=== PATIENT | female | born 1980 | race African-American/Black ===

== ENCOUNTER 2018-02-05 13:31 | Emergency (ER) | payer BC, SELFPAY ==
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
[2018-02-05] MEDS ORDERED: CODEINE 30MG/APAP 300MG TAB ONE (15:55)
[2018-02-05] MEDS ORDERED: DIAZEPAM 5 MG TABLET ONE (15:55)
[2018-02-05 17:21] VITALS: TEMP 98.1; O2SAT 100
[2018-02-05 17:22] VITALS: BP 120/85
== END 2018-02-05 16:16 | disposition home or self-care (01) ==
LOC: ER 13:31
DX: M54.31 Sciatica, right side (principal); Z72.0 Tobacco use; Z88.6 Allergy status to analgesic agent
CPT/HCPCS: 99283

== ENCOUNTER 2019-05-22 12:29 | Emergency (ER) | payer BC, SELFPAY ==
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
[2019-05-22 13:42] VITALS: BP 122/89; TEMP 97.7; O2SAT 100
== END 2019-05-22 13:31 | disposition home or self-care (01) ==
LOC: ER 12:29
DX: S13.9XXA Sprain of joints and ligaments of unspecified parts of neck, initial encounter (principal); S29.012A Strain of muscle and tendon of back wall of thorax, initial encounter; V43.52XA Car driver injured in collision with other type car in traffic accident, initial encounter; Y93.89 Activity, other specified; Y92.410 Unspecified street and highway as the place of occurrence of the external cause
CPT/HCPCS: 99283

== ENCOUNTER 2020-08-30 11:53 | Emergency (ER) | payer SELFPAY ==
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
[2020-08-30 14:46] VITALS: BP 152/105; TEMP 96.9; O2SAT 99
[2020-08-30] MEDS ORDERED: cloNIDine HCL 0.1 MG TAB ONE ×2 (16:29→16:32)
== END 2020-08-30 14:41 | disposition home or self-care (01) ==
LOC: ER 11:53
DX: R21 Rash and other nonspecific skin eruption (principal); F17.210 Nicotine dependence, cigarettes, uncomplicated; Z88.6 Allergy status to analgesic agent
CPT/HCPCS: 99282

== ENCOUNTER 2020-09-27 12:29 | Emergency (ER) | payer SELFPAY ==
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
[2020-09-27] MEDS ORDERED: METHYLPREDNISOLONE 125 MG INJ ONE (14:03)
[2020-09-27 14:22] VITALS: TEMP 97.5
[2020-09-27 14:23] VITALS: BP 153/113; O2SAT 100
== END 2020-09-27 14:12 | disposition home or self-care (01) ==
LOC: ER 12:29
DX: R21 Rash and other nonspecific skin eruption (principal); Z88.6 Allergy status to analgesic agent
CPT/HCPCS: 96372; 99284; J2930

== ENCOUNTER 2021-02-15 21:17 | Emergency (ER) | payer SELFPAY ==
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
[2021-02-16] MEDS ORDERED: KETOROLAC 30 MG/ML INJ ONE (00:35)
[2021-02-16 01:20] VITALS: TEMP 97.8
[2021-02-16 01:21] VITALS: BP 162/99; O2SAT 97
== END 2021-02-16 00:05 | disposition home or self-care (01) ==
LOC: ER 21:17
DX: G89.29 Other chronic pain (principal); Z88.6 Allergy status to analgesic agent; Z72.0 Tobacco use
CPT/HCPCS: 96372; 99283